=== PATIENT | female | born 1980 | race Caucasian/White ===

== ENCOUNTER 2017-08-20 15:59 | Emergency (ER) | payer OTHER ==
[~2017-08-20] VITALS: Ht 165.1 cm; Wt 89.5 kg
[~2017-08-20 15:59] MED LIST: TOPI25 PO; TOPI50TA4 PO
[2017-08-20] MEDS ORDERED: GADODIAMIDE PF 287 MG/ML 5 ML VIAL (for RAD MRI) IV PUSH ONE (16:00)
[2017-08-20 16:01] VITALS: BP 145/88; PULSE 94; RESP 14; TEMP 98.9; O2SAT 100
[2017-08-20] MEDS ORDERED: FERR325T18 PO (16:26)
[2017-08-20] MEDS ORDERED: ADDE15TA PO (16:26)
[2017-08-20] MEDS ORDERED: LEXA20TA PO (16:26)
--- NOTE | 2017-08-20 17:09 | PD ---
HPI Chief Complaint: Eye Problems/Injury Time Seen by Provider: 16:56 Travel History International Travel<30 days: No Contact w/Intl Traveler<30days: No Traveled to known affect area: No History of Present Illness HPI 37-year-old female with history of lupus here for evaluation of left eye blurry vision and pain. Patient reports symptoms have been going on for last week. She has been seen by motor boss Dr. Larson 3 times this week including this morning. He ordered an MRI, however she states that she cannot have an outpatient MRI until 08/26/17, so she presented to the emergency department because her symptoms seem to be worsening. Currently the pain is 2 out of 10, constant, sharp, worse with eye movements and light. She states that when she wakes up morning she experiences more extreme pain associated with nausea and vomiting. She reports that the vision in her left eye is blurry. [facility] Past Medical History Cerebrovascular Accident: Yes (1999) Headaches: Yes Migraines: Yes ?: Not : 2 Para: 2 Tubal Ligation: Yes (2002) Past Surgical History Abdominal Surgery: No Cardiac Surgery: No Ear Surgery: No Endocrine Surgery: No Eye Surgery: No Genitourinary Surgery: No Gynecologic Surgery: Yes ([facility]) Hysterectomy: Yes Oral Surgery: No Thoracic Surgery: No Other Surgery: Yes (BREAST REDUCTION 2005) Social History Alcohol Use: Yes ([facility] ) Tobacco Use: No Substance Use: No Allergies-Medications (Allergen,Severity, Reaction): Coded Allergies: Sulfa (Sulfonamide Antibiotics) (Unverified Allergy, Severe, HIVES, ) iron (Verified Allergy, Severe, Swelling, 08/20/17) SWELLING, ST, HYPERTENSION, CONFUSION latex (Unverified Allergy, Severe, HIVES, 08/20/17) Reported Meds & Prescriptions Reported Meds & Active Scripts Active Reported Lexapro (Escitalopram Oxalate) 20 Mg Tab 20 Mg PO DAILY Ferrous Sulfate 325 Mg (65 Mg Iron) Tablet 325 Mg PO BIDPC Adderall (Amphetamine-Dextroamphetamine) 15 Mg Tab 15 Mg PO DAILY Avoid late evening doses. Space doses at least 4 to 6 hours if more than once/day dosing. Review of Systems Except as stated in HPI: all other systems reviewed are Neg Physical Exam Narrative GENERAL: Well-developed, well-nourished, comfortable, no apparent distress. SKIN: Focused skin assessment warm/dry. No rash. HEAD: Atraumatic. Normocephalic. EYES: Pupils equal, round, 3 mm, reactive to light. EOMI. No scleral injection. Corneas are clear. Bilateral retinas and optic disks appear normal on funduscopic exam. ENT: Mucous membranes pink and moist. NECK: Trachea midline. No JVD. No nuchal rigidity. CARDIOVASCULAR: Regular rate and rhythm. RESPIRATORY: No accessory muscle use. Clear to auscultation. Breath sounds equal bilaterally. GASTROINTESTINAL: Abdomen soft, non-tender, nondistended. MUSCULOSKELETAL: No obvious deformities. No clubbing. No cyanosis. No edema. NEUROLOGICAL: Awake and alert. No obvious cranial nerve deficits. Motor grossly within normal limits. Normal speech. PSYCHIATRIC: Appropriate mood and affect; insight and judgment normal. Data Data Last Documented VS Vital Signs Date Time Temp Pulse Resp B/P (MAP) Pulse Ox O2 Delivery O2 Flow Rate FiO2 08/20/17 17:52 76 18 97 Room Air 08/20/17 16:01 98.9 Orders Orders Basic Metabolic Panel (Bmp) (08/20/17 17:03) Complete Blood Count With Diff (08/20/17 17:03) Prothrombin Time / Inr (Pt) (08/20/17 17:03) Act Partial Throm Time (Ptt) (08/20/17 17:03) Iv Access Insert/Monitor (08/20/17 17:03) Ecg Monitoring (08/20/17 17:03) Oximetry (08/20/17 17:03) Sodium Chloride 0.9% Flush (Ns Flush) (08/20/17 17:15) Mri Brain W&W/O Contrast (08/20/17 ) Westergren Sedimentation Rate (08/20/17 17:03) C-Reactive Protein (Crp) (08/20/17 17:05) Gadodiamide Pf Inj (Omniscan Pf Inj) (08/20/17 16:00) Metoclopramide Inj (Reglan Inj) (08/20/17 20:00) Ketorolac Inj (Toradol Inj) (08/20/17 20:00) Labs Laboratory Tests Test 08/20/17 17:12 White Blood Count 14.5 TH/MM3 Red Blood Count 4.82 MIL/MM3 Hemoglobin 13.2 GM/DL Hematocrit 40.2 % Mean Corpuscular Volume 83.4 FL Mean Corpuscular Hemoglobin 27.4 PG Mean Corpuscular Hemoglobin Concent 32.8 % Red Cell Distribution Width 21.8 % Platelet Count 470 TH/MM3 Mean Platelet Volume 7.7 FL Neutrophils (%) (Auto) 68.0 % Lymphocytes (%) (Auto) 21.7 % Monocytes (%) (Auto) 9.0 % Eosinophils (%) (Auto) 1.0 % Basophils (%) (Auto) 0.3 % Neutrophils # (Auto) 9.9 TH/MM3 Lymphocytes # (Auto) 3.1 TH/MM3 Monocytes # (Auto) 1.3 TH/MM3 Eosinophils # (Auto) 0.1 TH/MM3 Basophils # (Auto) 0.0 TH/MM3 CBC Comment DIFF FINAL Differential Comment Erythrocyte Sedimentation Rate 10 mm/hr Prothrombin Time 10.7 SEC Prothromb Time International Ratio 1.0 RATIO Activated Partial Thromboplast Time 27.8 SEC Blood Urea Nitrogen 7 MG/DL Creatinine 0.69 MG/DL Random Glucose 92 MG/DL Calcium Level 8.8 MG/DL Sodium Level 142 MEQ/L Potassium Level 3.7 MEQ/L Chloride Level 106 MEQ/L Carbon Dioxide Level 30.6 MEQ/L Anion Gap 5 MEQ/L Estimat Glomerular Filtration Rate 96 ML/MIN C-Reactive Protein 1.90 MG/DL [facility] Medical Decision Making Medical Screen Exam Complete: Yes Emergency Medical Condition: Yes Differential Diagnosis Optic neuritis, temporal arteritis, central retinal vein occlusion, central retinal artery occlusion, acute angle-closure glaucoma unlikely Narrative Course Vital signs reviewed. CBC: WBC 14.5, hemoglobin 13.2, hematocrit 40.2, platelets 470 BMP is unremarkable. CRP is 1.9. ESR is 10. MRI brain: CONCLUSION: 1. Normal brain. 2. Mild chronic paranasal sinus disease. Patient was made aware of all findings. She reports history of elevated WBC count in the 20,000 range as well as elevated platelets. This is being worked up as an outpatient. She also reports history of chronically elevated CRP. She tells me that her uncorrected vision today was tested at her motor boss office and was 20/20 in the right eye, 20/50 in the left eye. Currently the pain is 2 out of 10, dull/sharp. Her symptoms have been going on for over a week. She was provided a copy of her MRI report. She has had an extensive workup as an outpatient with her motor boss. She tells me that he is thinking about referring her to [facility]. At this point she is stable for discharge home with outpatient follow-up. She was informed on when to return to the emergency department. She verbalizes understanding and agreement with plan. Diagnosis Primary Impression: Cephalgia Qualified Codes: R51 - Headache Additional Impression: Blurred vision, left eye Referrals: Legal Project Manager 2 days Primary Care Physician 2 days Additional Instructions: Follow-up with your motor boss in the next 2-3 days. Return to the emergency department for worsening symptoms or any other concerns. Disposition: 01 DISCHARGE HOME Condition: Stable Jose G Simon MD Aug 20, 2017 17:09
[2017-08-20] MEDS ORDERED: SODIUM CHLORIDE 0.9% FLUSH 10 ML FLUSH IV FLUSH PRN (17:15)
[2017-08-20 17:52] VITALS: PULSE 76; RESP 18; O2SAT 97
[2017-08-20 18:04] LABS: AUTOMATED NEUTROPHIL # 9.9 TH/MM3 (1.8-7.7); BASOPHIL % 0.3 % (0.0-2.0); EOSINOPHIL # 0.1 TH/MM3 (0-0.4); HEMATOCRIT 40.2 % (35.0-46.0); HEMO FLAGS DIFF FINAL; LYMPH % 21.7 % (9.0-44.0); LYMPHOCYTE # 3.1 TH/MM3 (1.0-4.8); MEAN CELL VOLUME 83.4 FL (80.0-100.0); MEAN CORPUSCULAR HEMOGLOBIN 27.4 PG (27.0-34.0); MEAN CORPUSCULAR HGB CONC 32.8 % (32.0-36.0); PLATELET COUNT 470 TH/MM3 (150-450); RED BLOOD COUNT 4.82 MIL/MM3 (4.00-5.30); RED CELL DISTRIBUTION WIDTH 21.8 % (11.6-17.2); WHITE BLOOD COUNT 14.5 TH/MM3 (4.0-11.0)
[2017-08-20 18:16] LABS: APTT (PATIENT) 27.8 SEC (24.3-30.1); PROTHROMBIN TIME - PATIENT 10.7 SEC (9.8-11.6)
[2017-08-20 18:24] LABS: BICARBONATE 30.6 MEQ/L (21.0-32.0); POTASSIUM 3.7 MEQ/L (3.5-5.1)
--- NOTE | 2017-08-20 19:52 | RADRPT ---
EXAM DATE/TIME: 08/20/2017 18:46 [place] COMPARISON: No previous studies available for comparison. INDICATIONS : Cephalgia. Left eye pain and blurry vision. CONTRAST: 17 cc Omniscan (gadodiamide) IV MEDICAL HISTORY : Lupus. CVA. SURGICAL HISTORY : Hysterectomy. Tubal ligation. Breast reduction. ENCOUNTER: Subsequent ACUITY: 1 week PAIN SCORE: 5/10 LOCATION: cranial TECHNIQUE: Multiplanar, multisequence MRI of the brain was performed both prior to and following the administrat ion of paramagnetic contrast. FINDINGS: CEREBRUM: The ventricles are normal for age. No evidence of midline shift, mass lesion, hemorrhage or acute in farction. No extraaxial fluid collections are seen. The pituitary gland and suprasellar cistern are normal in configuration. WHITE MATTER: No significant signal abnormalities are seen in the white matter. POSTERIOR FOSSA: The cerebellum and brainstem are intact. The 4th ventricle is midline. The cerebellopontine angle is unremarkable. The cerebellar tonsils are normal in position. DIFFUSION IMAGING: No focal areas of restricted diffusion are seen. No evidence of acute infarction. EXTRACRANIAL: The visualized portions of the orbits are unremarkable. Mucosal thickening is seen involving the ethm oid air cells and frontal sinuses bilaterally. Mild mucosal thickening involving the maxillary sinuse s. No air-fluid levels. Trace fluid signal seen within the mastoid air cells bilaterally. POST-CONTRAST: No abnormal areas of parenchymal or dural enhancement. No evidence of blood-brain barrier breakdown. CONCLUSION: 1. Normal brain. 2. Mild chronic paranasal sinus disease. Giovany Contreras Jr., MD on August 20, 2017 at 19:48 Board Certified Radiologist. This report was verified electronically.
[2017-08-20] MEDS ORDERED: METOCLOPRAMIDE HCL 10 MG/2 ML VIAL IV PUSH ONE (20:00)
[2017-08-20] MEDS ORDERED: KETOROLAC TROMETHAMINE 30 MG/ML (IVP) VIAL IV PUSH ONE (20:00)
[2017-08-20 20:34] VITALS: BP 137/85
== END 2017-08-20 20:37 | disposition home or self-care (01) ==
LOC: NEPD 15:59
DX: R51 Headache (principal); H53.8 Other visual disturbances; R11.2 Nausea with vomiting, unspecified; M32.9 Systemic lupus erythematosus, unspecified; Z79.899 Other long term (current) drug therapy; Z88.2 Allergy status to sulfonamides; Z86.73 Personal history of transient ischemic attack (TIA), and cerebral infarction without residual deficits
CPT/HCPCS: 70553; 80048; 85025; 85610; 85652; 85730; 86140; 96374; 96375; 99285; A9579; J1885; J2765